=== PATIENT | female | born 1995 | race Caucasian/White ===

== ENCOUNTER 2018-10-09 22:15 | Outpatient (CLI) | payer OTHER ==
[2018-10-10 00:15] LABS: ADD UMIC NO; UR ASCORBIC ACID NEGATIVE (NEGATIVE); UR BILIRUBIN (Dip) NEGATIVE (NEGATIVE); UR BLOOD (Dip) NEGATIVE (NEGATIVE); UR CLARITY SLIGHTLY CLOUDY (CLEAR); UR COLOR YELLOW (YELLOW); UR GLUCOSE (Dip) 1+ mg/dL (NEGATIVE); UR KETONES (Dip) NEGATIVE (NEGATIVE); UR LEUKOCYTE ESTERASE (Dip) NEGATIVE Leu/ul (NEGATIVE); UR MUCUS FEW /HPF (NONE SEEN); UR NITRITE (Dip) NEGATIVE (NEGATIVE); UR RBC 1 /HPF (0-5); UR SPECIFIC GRAVITY (Dip) 1.024 (1.003-1.030); UR SQUAMOUS EPITHELIAL CELL MODERATE /HPF (FEW); UR TOTAL PROTEIN (Dip) NEGATIVE (NEGATIVE); UR UROBILINOGEN (Dip) NEGATIVE (NEGATIVE); UR WBC 4 /HPF (0-5)
[2018-10-10 00:30] LABS: RUPTURE FETAL MEMBRANES NEGATIVE (NEGATIVE)
[2018-10-10 01:08] LABS: ADD MAN DIFF? NO; BASOPHILS % 0.4 % (0.0-2.0); EOSINOPHILS # 0.1 10^3/ul (0.0-0.5); EOSINOPHILS % 1.1 % (0.0-7.0); HEMATOCRIT 37.2 % (37.0-47.0); HEMOGLOBIN 12.3 g/dl (12.0-16.0); LYMPHOCYTES # 1.5 10^3/ul (0.8-2.9); LYMPHOCYTES % 17.7 % (15.0-51.0); MEAN CORPUSCULAR HEMOGLOBIN 29.2 pg (29.0-33.0); MEAN CORPUSCULAR HGB CONC 33.1 g/dl (32.0-37.0); MEAN CORPUSCULAR VOLUME 88.4 fl (82.0-101.0); MEAN PLATELET VOLUME 11.2 fl (7.4-10.4); MONOCYTE # 0.8 10^3/ul (0.3-0.9); NEUTROPHILS % 71.3 % (39.0-77.0); PLATELET COUNT 200 10^3/UL (140-415); RED BLOOD COUNT 4.21 10^6/ul (4.20-5.40); RED CELL DISTRIBUTION WIDTH 12.1 % (11.5-14.5)
[2018-10-10 01:08] LABS: WHITE BLOOD COUNT 8.3 10^3/ul (4.8-10.8)
== END 2018-10-10 02:55 | disposition home or self-care (01) ==
LOC: OBT 22:15 → L-D 22:18
DX: O62.9 Abnormality of forces of labor, unspecified (principal); Z3A.32 32 weeks gestation of pregnancy
CPT/HCPCS: 76815; 76817; 81001; 81003; 84112; 85025

== ENCOUNTER 2018-11-18 11:04 | Outpatient (CLI) | payer OTHER | END 2018-11-18 13:38 | disposition home or self-care (01) | LOC: OBT 11:04 → L-D 11:04 → OBT 13:38 | DX: O62.9 Abnormality of forces of labor, unspecified (principal); Z3A.38 38 weeks gestation of pregnancy | CPT/HCPCS: 76815; 76818 ==

== ENCOUNTER 2018-11-19 10:18 | Outpatient (CLI) | payer OTHER | END 2018-11-19 15:50 | disposition home or self-care (01) | LOC: OBT 10:18 → L-D 10:37 → OBT 15:50 | DX: O62.9 Abnormality of forces of labor, unspecified (principal); Z3A.38 38 weeks gestation of pregnancy | CPT/HCPCS: 76818 ==

== ENCOUNTER 2018-11-21 03:54 | Inpatient (IN) | payer OTHER ==
[2018-11-21] MEDS ORDERED: LACTATED RINGER'S 1,000 ML IV (07:06)
[2018-11-21] MEDS ORDERED: BUTORPHANOL 1 MG INJ IV (07:30)
[2018-11-21] MEDS ORDERED: CARBOPROST 250 MCG INJ IM (07:30)
[2018-11-21] MEDS ORDERED: BUTORPHANOL 2 MG INJ IV (07:30)
[2018-11-21] MEDS ORDERED: OXYTOCIN 30 UNITS/LR 500 ML IV (07:30)
[2018-11-21] MEDS ORDERED: METHYLERGONOVINE 0.2 MG INJ IM (07:30)
[2018-11-21] MEDS ORDERED: MISOPROSTOL 200 MCG TAB PR (07:30)
[2018-11-21 07:39] LABS: ADD MAN DIFF? NO
[2018-11-21 07:45] LABS: WHITE BLOOD COUNT 8.7 10^3/ul (4.8-10.8)
[2018-11-21 07:45] LABS: BASOPHILS % 0.5 % (0.0-2.0); EOSINOPHILS % 0.5 % (0.0-7.0); HEMOGLOBIN 12.4 g/dl (12.0-16.0); LYMPHOCYTES # 1.2 10^3/ul (0.8-2.9); LYMPHOCYTES % 13.5 % (15.0-51.0); MEAN CORPUSCULAR HEMOGLOBIN 29.2 pg (29.0-33.0); MEAN CORPUSCULAR HGB CONC 33.5 g/dl (32.0-37.0); MEAN CORPUSCULAR VOLUME 87.1 fl (82.0-101.0); MEAN PLATELET VOLUME 11.7 fl (7.4-10.4); MONOCYTE # 0.6 10^3/ul (0.3-0.9); NEUTROPHIL # 6.8 10^3/ul (1.6-7.5); NEUTROPHILS % 77.9 % (39.0-77.0); PLATELET COUNT 149 10^3/UL (140-415); RED BLOOD COUNT 4.25 10^6/ul (4.20-5.40); RED CELL DISTRIBUTION WIDTH 12.6 % (11.5-14.5)
[2018-11-21 08:07] LABS: INR 0.93; PARTIAL THROMBOPLASTIN TIME 25.8 Sec (23.0-35.0); PROTIME 12.6 Sec (11.9-14.9)
[2018-11-21 08:54] LABS: HEPATITIS B SURFACE ANTIGEN NEGATIVE (NEGATIVE)
[2018-11-21] MEDS: LACTATED RINGER'S 1,000 ML IV ×6 (08:59→22:23)
[2018-11-21 09:51] LABS: ALANINE AMINOTRANSFERASE 12 IU/L (13-69); ALBUMIN 3.9 g/dl (3.3-4.9); ALBUMIN/GLOBULIN RATIO 1.11; ALKALINE PHOSPHATASE 240 IU/L (42-121); ANION GAP 9 (5-13); ASPARTATE AMINO TRANSFERASE 20 IU/L (15-46); BILIRUBIN,INDIRECT 0.3 mg/dl (0-1.1); BILIRUBIN,TOTAL 0.3 mg/dl (0.2-1.3); BLOOD UREA NITROGEN 11 mg/dl (7-20); CALCIUM 9.4 mg/dl (8.4-10.2); CARBON DIOXIDE 21 mmol/L (21-31); CHLORIDE 108 mmol/L (97-110); CREATININE 0.52 mg/dl (0.44-1.00); Estimated GFR > 60 mL/min (>60); GLUCOSE 82 mg/dl (70-220); POTASSIUM 4.4 mmol/L (3.5-5.1); SODIUM 138 mmol/L (135-144); TOTAL PROTEIN 7.4 g/dl (6.1-8.1); URIC ACID 5.3 mg/dl (3.1-7.9)
[2018-11-21 10:28] LABS: ADD UMIC YES; UR ASCORBIC ACID NEGATIVE (NEGATIVE); UR BACTERIA FEW /HPF (NONE SEEN); UR BILIRUBIN (Dip) NEGATIVE (NEGATIVE); UR BLOOD (Dip) 3+ mg/dL (NEGATIVE); UR CLARITY SLIGHTLY CLOUDY (CLEAR); UR COLOR YELLOW (YELLOW); UR GLUCOSE (Dip) NEGATIVE (NEGATIVE); UR KETONES (Dip) NEGATIVE (NEGATIVE); UR LEUKOCYTE ESTERASE (Dip) NEGATIVE Leu/ul (NEGATIVE); UR MUCUS FEW /HPF (NONE SEEN); UR NITRITE (Dip) NEGATIVE (NEGATIVE); UR RBC 0 /HPF (0-5); UR SPECIFIC GRAVITY (Dip) 1.029 (1.003-1.030); UR SQUAMOUS EPITHELIAL CELL FEW /HPF (FEW); UR TOTAL PROTEIN (Dip) 1+ mg/dl (NEGATIVE); UR UROBILINOGEN (Dip) NEGATIVE (NEGATIVE); UR WBC 7 /HPF (0-5)
[2018-11-21] MEDS: OXYTOCIN 30 UNITS/LR 500 ML IV (11:46)
[2018-11-21] MEDS ORDERED: FENTAnyl 2MCG/ML-ROPIV 0.2% 100 ML (17:19)
[2018-11-21] MEDS ORDERED: NALOXONE (0.4 MG/ML) INJ IV (18:00)
[2018-11-21 21:10] LABS: RAPID PLASMA REAGIN NONREACTIVE (NR)
[2018-11-21] MEDS: FENTAnyl 2MCG/ML-ROPIV 0.2% 100 ML BAG EPI (22:44)
[2018-11-22] MEDS: LACTATED RINGER'S 1,000 ML IV (03:27)
[2018-11-22] MEDS: FENTAnyl 2MCG/ML-ROPIV 0.2% 100 ML BAG EPI (04:28)
[2018-11-22] MEDS: DEXTROSE 5%-LR 1,000 ML IV (05:14)
[2018-11-22] MEDS: MINERAL OIL 30ML CUP PO (11:00)
[2018-11-22] MEDS: OXYTOCIN 30 UNITS/LR 500 ML IV ×2 (11:16→11:33)
[2018-11-22] MEDS ORDERED: OXYTOCIN 30 UNITS/LR 500 ML IV ×2 (11:24→11:30)
[2018-11-22] MEDS ORDERED: CARBOPROST 250 MCG INJ IM (11:30)
[2018-11-22] MEDS ORDERED: WITCH HAZEL/GLYCERIN PAD PR (11:30)
[2018-11-22] MEDS ORDERED: MISOPROSTOL 200 MCG TAB PR (11:30)
[2018-11-22] MEDS ORDERED: NACL 0.9% 3 ML SYG IV (11:30)
[2018-11-22] MEDS ORDERED: ONDANSETRON 4 MG INJ IV (11:30)
[2018-11-22] MEDS ORDERED: OXYCODONE/ASPIRIN (4.88/325) TAB PO (11:30)
[2018-11-22] MEDS ORDERED: METHYLERGONOVINE 0.2 MG INJ IM (11:30)
[2018-11-22] MEDS ORDERED: ACETAMINOPHEN 325 MG TAB PO (11:30)
[2018-11-22] MEDS ORDERED: LANOLIN HPA 1 PKT TOP (11:30)
[2018-11-22] MEDS: IBUPROFEN 600 MG TAB PO ×3 (11:46→17:55)
[2018-11-22] MEDS: MINERAL OIL LIGHT 10 ML VIAL TOP (12:20)
[2018-11-22] MEDS: LIDOCAINE 1% (MPF) 30 ML INJ INJ (12:21)
[2018-11-22] MEDS: OXYCODONE/ASPIRIN (4.88/325) TAB PO (14:58)
[2018-11-22] MEDS: SENNA/DOCUSATE NA (8.6MG/50MG) TAB PO (21:00)
[2018-11-23] MEDS: IBUPROFEN 600 MG TAB PO ×5 (00:40→23:28)
[2018-11-23 08:46] LABS: HEMATOCRIT 27.7 % (37.0-47.0); HEMOGLOBIN 9.4 g/dl (12.0-16.0)
[2018-11-23] MEDS ORDERED: FERROUS SULFATE 220 MG/5 ML ML PO (09:00)
[2018-11-23] MEDS ORDERED: NON-FORMULARY/PATIENT OWN MED (Calcium Carbonate* 600 MG) PO (09:00)
[2018-11-23] MEDS ORDERED: NON-FORMULARY/PATIENT OWN MED (Ferrous Sulfate (Iron) 134 MG) PO (09:00)
[2018-11-23] MEDS: FOLIC ACID 0.4 MG TAB PO (09:35)
[2018-11-23] MEDS: PRENATAL VITAMIN PO (09:35)
[2018-11-23] MEDS: SENNA/DOCUSATE NA (8.6MG/50MG) TAB PO ×2 (09:35→21:54)
[2018-11-23] MEDS: CA CARBONATE (250 MG/ML) 5ML CUP PO (09:36)
[2018-11-23] MEDS: FERROUS SULFATE 60 MG/ML 5ML CUP PO (09:36)
[2018-11-23] MEDS: FERROUS SULFATE (EC) 325 MG TAB PO (21:54)
[2018-11-24] MEDS: IBUPROFEN 600 MG TAB PO ×2 (05:27→12:09)
[2018-11-24] MEDS: PRENATAL VITAMIN PO (09:39)
[2018-11-24] MEDS: SENNA/DOCUSATE NA (8.6MG/50MG) TAB PO (09:39)
[2018-11-24] MEDS: FERROUS SULFATE (EC) 325 MG TAB PO (09:39)
== END 2018-11-24 14:10 | disposition home or self-care (01) | DRG 807 ==
LOC: OBT 03:54 → PP1 11-22 13:16 → L-D 03:57 → OBT 06:57 → L-D 06:57
PROC: 10D07Z6 Extraction of Products of Conception, Vacuum, Via Natural or Artificial Opening (ICD-10-PCS; principal; 2018-11-22)
PROC: 0HQ9XZZ Repair Perineum Skin, External Approach (ICD-10-PCS; 2018-11-22)
DX: O75.81 Maternal exhaustion complicating labor and delivery (principal); O13.4 Gestational [pregnancy-induced] hypertension without significant proteinuria, complicating childbirth; O70.0 First degree perineal laceration during delivery; Z37.0 Single live birth; Z3A.38 38 weeks gestation of pregnancy
CPT/HCPCS: 62319; 80053; 81001; 84560; 85014; 85018; 85025; 85384; 85610; 85730; 86592; 86850; 86900; 86901; 87340; 99464